=== PATIENT | female | born 1995 | race Caucasian/White ===

== ENCOUNTER 2023-09-08 06:47 | Day surgery (SDC) | payer BC, SELFPAY ==
[2023-09-08] VITALS (7 sets, daily range): BP systolic 106–114; BP diastolic 51–97; BMI 28.4
[2023-09-08] MEDS: NORMOSOL-R 1000 IV (09:40)
[2023-09-08] MEDS: VIBRAMYCIN 270 MG IV (09:40)
[2023-09-08 09:52] LABS: Hematocrit 39.2 % (37.0-47.0); Hemoglobin 13.3 g/dL (12.0-16.0)
[2023-09-08] MEDS: TYLENOL 650 MG PO (11:48)
== END 2023-09-08 12:13 | disposition home or self-care (01) ==
LOC: SDS 06:47
PROVIDERS: ATTENDING PHYSICIAN Obstetrics & Gynecology
DX: O03.4 Incomplete spontaneous abortion without complication (principal)
CPT/HCPCS: 59820; 88305; 85014; 85018; 86850; 86900; 86901; 87070

== ENCOUNTER → 2024-05-14 14:41 | Outpatient (REF) | payer BC, SELFPAY | LOC: RAD 14:41 | PROVIDERS: ATTENDING PHYSICIAN Obstetrics & Gynecology; FAMILY PHYSICIAN Nurse Practitioner | DX: Z31.41 Encounter for fertility testing (principal); N97.9 Female infertility, unspecified | CPT/HCPCS: 58340; 74740 ==

== ENCOUNTER 2025-04-29 08:29 | Emergency (ER) | payer BC, SELFPAY ==
[2025-04-29 08:31] VITALS: BP 106/77
[2025-04-29 09:20] VITALS: BP 102/59
[2025-04-29 09:22] VITALS: BP 102/59; BMI 32.1
[2025-04-29 09:40] LABS: Hematocrit 29.6 % (37.0-47.0); Hemoglobin 10.2 g/dL (12.0-16.0); Mean Corp Hgb Conc. 34.5 g/dL (33.0-37.0); Mean Corpuscular Volume 87.3 fL (81.0-99.0); Platelet Count 141 10^3/uL (130-400); Red Cell Dist. Width 13.6 % (11.5-14.5)
--- NOTE | 2025-04-29 09:45 | ED.GENMED ---
History of Present Illness
<Shon Medina MD, Resident - Last Filed: 04/29/25 12:55>
General
Chief Complaint: Breathing Problem
Source: patient and family
Time Seen by Provider: 04/29/25 08:59
History of Present Illness
History of Present Illness:
Patient is a 29-year-old female who is 29 weeks with PMH of asthma presented to the [facility] ED for shortness of breath. Patient developed backache, subjective fever, chills, and fatigue on Friday, followed by shortness of breath and
cough on Friday. Shortness of breath is intermittent and worse with exertion. Significant other at the bedside notes the patient had shaking chills in bed last night. Patient returned home on a flight from [place] yesterday. Patient receives
regular obstetric care at [facility]. is remarkable for velamentous cord insertion, which is followed with more frequent ultrasounds. Patient is also taking levothyroxine during this . Denies chest pain, headache, hemoptysis,
N/V/D. Patient was around a coworker with congestion, otherwise no sick contacts. No history of clotting or bleeding.
Past History
<Shon Medina MD, Resident - Last Filed: 04/29/25 12:55>
Past History
ED Past Medical History: Asthma and Hypothyroidism (During this )
ED Past Surgical History: Gynecological (D&C for miscarriage in early 2023)
Review of Systems
<Shon Medina MD, Resident - Last Filed: 04/29/25 12:55>
Review of Systems
Constitutional: Reports fever, fatigue, sleep disturbance and chills
EENT: Denies sore throat or runny nose
Respiratory: Reports cough and trouble breathing; Denies hemoptysis
Cardiac: Denies chest pain
ABD/GI: Denies abdominal pain, nausea, vomiting or diarrhea
Musculoskeletal: Reports back pain
Neurological: Denies headache, weakness or numbness
Phy Exam
<Shon Medina MD, Resident - Last Filed: 04/29/25 12:55>
Physical Exam
Physical Exam:
General: NAD. Conversant.
CV: RRR. S1, S2 noted. No M/R/G. No LE edema. Flexural area of L knee erythematous, without swelling or TTP. L and R legs equal in size.
Pulm: CTAB. No wheezes or crackles.
GI/: Gravid abdomen consistent with 29-week . Soft, nontender.
Neuro: A&O x 3. No focal deficits. CN II through XII grossly intact.
Course
<Shon Medina MD, Resident - Last Filed: 04/29/25 12:55>
Orders/Labs/Results
Orders:
Orders
04/29/25
Electrocardiogram (*1) Stat
Other Reason for Exam: CP
Comment: DONE
04/29/25 09:19
COVID-19 Antigen Urgent
Source: Nasal Swab
Complete Blood Count/With Diff Urgent
Comprehensive Metabolic Panel Urgent
Lipase Urgent
Comment: ADD ON
Manual Differential Urgent
Influenza A+B Rapid Molecular Urgent
GAEL Source: Nasal Swab
Specimen Description:
04/29/25 09:42
CR Chest - 2 Views Routine
Comment:
Reason For Exam: shortness of breath, cough
04/29/25 09:43
US Periph Venous LOWER Ext LT Urgent
Comment:
Reason For Exam: knee erythema in setting of sob, cough,
04/29/25 10:26
EKG [Electrocardiogram (*1)] Routine
Reason for Study: Shortness of Breath
04/29/25 10:42
Add On- LAB Urgent
Tests Added?: Lipase
04/29/25 10:59
US Abdomen Complete/Upper Urgent
Comment:
Reason For Exam: fever lft up
04/29/25 11:14
0.9% Sodium Chloride 1000 ml [Nss] 1,000 ml IV BOLUS
Acetaminophen [Tylenol] 650 mg PO NOW STA
04/29/25 11:29
Urinalysis Reflex To Culture Urgent
Date Specimen was Collected: 04/29/25
Time Specimen was Collected: 11:21
Urine Microscopic Reflex Cult Urgent
Urine Culture Urgent
GAEL Source: U
Specimen Description:
Date Specimen was Collected: 04/29/25
Time Specimen was Collected: 11:21
04/29/25 12:27
Lipase Urgent
04/29/25 12:51
Hepatitis A IgM Antibody Urgent
Hepatitis B Core Ab, IgM Urgent
Hepatitis B Surface Antibody Urgent
Hepatitis B Surface Antigen Urgent
Hepatitis C Antibody Urgent
Abnormal Lab Results
04/29/25 04/29/25
09:19 11:29
RBC 3.39 L 10^6/uL
(4.20-5.40)
Hgb 10.2 L g/dL
(12.0-16.0)
Hct 29.6 L %
(37.0-47.0)
MPV 10.8 H fL
(7.4-10.4)
Band Neutrophils 23 H %
(0-3)
Lymphocytes (Manual) 5 L %
(20-51)
Sodium 132 L mmol/L
(135-145)
Potassium 3.3 L mmol/L
(3.5-5.1)
Chloride 111 H mmol/L
(98-107)
Carbon Dioxide 19 L mmol/L
(22-30)
BUN 3 L mg/dl
(7-17)
AST 229 H U/L
(14-36)
ALT 209 H U/L
(0-35)
Alkaline Phosphatase 135 H U/L
(38-126)
Total Protein 5.8 L g/dl
(6.3-8.2)
Albumin 3.0 L g/dl
(3.5-5.0)
Urine Ketones 3+ A
(Negative)
Urine WBC (Reflex) 16-20 A /HPF
(0-5)
Urine Bacteria (Reflex) Many A
(Negative)
Urine Albumin (Reflex) 2+ A
(Neg - Trace)
04/29/25 09:19
04/29/25 09:19
Vital Signs
Initial and Last Documented VS:
Initial Vital Signs
Temp Pulse Resp BP Pulse Ox
98.7 F 106 16 106/77 94
04/29/25 08:31 04/29/25 08:31 04/29/25 08:31 04/29/25 08:31 04/29/25 08:31
Last Documented Vital Signs
Temp Pulse Resp BP Pulse Ox
98.1 F 93 14 102/59 96
04/29/25 09:22 04/29/25 09:45 04/29/25 09:45 04/29/25 09:22 04/29/25 09:46
<Carmine Barton, DO - Last Filed: 04/29/25 11:31>
Orders/Labs/Results
Orders:
Orders
04/29/25
Electrocardiogram (*1) Stat
Other Reason for Exam: CP
Comment: DONE
04/29/25 09:19
COVID-19 Antigen Urgent
Source: Nasal Swab
Complete Blood Count/With Diff Urgent
Comprehensive Metabolic Panel Urgent
Lipase Urgent
Comment: ADD ON
Manual Differential Urgent
Influenza A+B Rapid Molecular Urgent
GAEL Source: Nasal Swab
Specimen Description:
04/29/25 09:42
CR Chest - 2 Views Routine
Comment:
Reason For Exam: shortness of breath, cough
04/29/25 09:43
US Periph Venous LOWER Ext LT Urgent
Comment:
Reason For Exam: knee erythema in setting of sob, cough,
04/29/25 10:26
EKG [Electrocardiogram (*1)] Routine
Reason for Study: Shortness of Breath
04/29/25 10:42
Add On- LAB Urgent
Tests Added?: Lipase
04/29/25 10:59
US Abdomen Complete/Upper Urgent
Comment:
Reason For Exam: fever lft up
04/29/25 11:14
0.9% Sodium Chloride 1000 ml [Nss] 1,000 ml IV BOLUS
Acetaminophen [Tylenol] 650 mg PO NOW STA
04/29/25 11:29
Urinalysis Reflex To Culture Urgent
Date Specimen was Collected: 04/29/25
Time Specimen was Collected: 11:21
Urine Microscopic Reflex Cult Urgent
Urine Culture Urgent
GAEL Source: U
Specimen Description:
Date Specimen was Collected: 04/29/25
Time Specimen was Collected: 11:21
04/29/25 12:27
Lipase Urgent
04/29/25 12:51
Hepatitis A IgM Antibody Urgent
Hepatitis B Core Ab, IgM Urgent
Hepatitis B Surface Antibody Urgent
Hepatitis B Surface Antigen Urgent
Hepatitis C Antibody Urgent
Abnormal Lab Results
04/29/25 04/29/25
09:19 11:29
RBC 3.39 L 10^6/uL
(4.20-5.40)
Hgb 10.2 L g/dL
(12.0-16.0)
Hct 29.6 L %
(37.0-47.0)
MPV 10.8 H fL
(7.4-10.4)
Band Neutrophils 23 H %
(0-3)
Lymphocytes (Manual) 5 L %
(20-51)
Sodium 132 L mmol/L
(135-145)
Potassium 3.3 L mmol/L
(3.5-5.1)
Chloride 111 H mmol/L
(98-107)
Carbon Dioxide 19 L mmol/L
(22-30)
BUN 3 L mg/dl
(7-17)
AST 229 H U/L
(14-36)
ALT 209 H U/L
(0-35)
Alkaline Phosphatase 135 H U/L
(38-126)
Total Protein 5.8 L g/dl
(6.3-8.2)
Albumin 3.0 L g/dl
(3.5-5.0)
Urine Ketones 3+ A
(Negative)
Urine WBC (Reflex) 16-20 A /HPF
(0-5)
Urine Bacteria (Reflex) Many A
(Negative)
Urine Albumin (Reflex) 2+ A
(Neg - Trace)
04/29/25 09:19
04/29/25 09:19
Vital Signs
Initial and Last Documented VS:
Initial Vital Signs
Temp Pulse Resp BP Pulse Ox
98.7 F 106 16 106/77 94
04/29/25 08:31 04/29/25 08:31 04/29/25 08:31 04/29/25 08:31 04/29/25 08:31
Last Documented Vital Signs
Temp Pulse Resp BP Pulse Ox
98.1 F 93 14 102/59 96
04/29/25 09:22 04/29/25 09:45 04/29/25 09:45 04/29/25 09:22 04/29/25 09:46
<Shon Medina MD, Resident - Last Filed: 04/29/25 12:55>
MDM/Problems Addressed
Differential Diagnosis Includes:
Pulmonary embolism
Pneumonia
Pneumothorax
Bronchitis
Asthma exacerbation
Heart failure
Physiologic dyspnea
MDM/Problems Addressed:
Assessment: Patient is a 29-year-old female 29 weeks with PMH of asthma who presented to the [facility] ED with subjective fever, fatigue, back pain, and chills for 3 days and shortness of breath (worse with exertion) and cough for 2 days.
Patient also noticed erythema at the flexural area of her L knee this morning, without pain or swelling. On presentation, patient was mildly tachycardic (106) with mild hypoxia (94%), otherwise normal vital signs. Initial assessment with CXR and
LLE U/S unremarkable. LFTs elevated and upper abdominal ultrasound, prompting evaluation of hepatocellular causes of liver injury. UA suggestive of UTI, culture pending.
Plan:
#Shortness of breath
#Transaminitis
Imaging: CXR, LLE u/s, upper abdominal u/s
Labs: CBC, CMP, flu, COVID, lipase, viral hepatitis panel, UA
<Shon Medina MD, Resident - Last Filed: 04/29/25 12:55>
*Pulse Oximetry
SaO2: 96
Oxygen Mode of Delivery: Room air
Patient hypoxic: yes
*Critical Care Note
Total Time (30-74mins, 75-104mins- exclusive of procedures): Not Applicable
ED Attending Note
<Shon Medina MD, Resident - Last Filed: 04/29/25 12:55>
-
Portions of this chart may have been created with voice recognition software.� Occasional wrong word or��sound alike� substitutions may have occurred due to the inherent limitations of voice recognition software.
<Carmine Barton, DO - Last Filed: 04/29/25 11:31>
ED Attending Note
Patient seen and examined by attending physician: Yes
I performed a history and physical exam of patient and discussed management with resident, I reviewed resident's note and agree with documented findings and plan of care.: Yes
ED Attending Note:
seen with resident, agree with a/p
2nd trimester, cough sob fever and shaking chills
Nontoxic, minimal redness in her left posterior knee,
Chest x-ray noted reviewed with radiology no obvious pneumonia, labs are noted normal white count with a shift LFTs are up, lipase is pending denies any abdominal pain does not lost her appetite
Clinical suspicion is an infectious process as opposed to thromboembolic disease
? Viral,
Discharge Plan
Departure
Prescriptions:
No Action
1 mg Tablet
1 tab PO DAILY
albuterol sulfate [ProAir HFA] 90 mcg/actuation Hfa Aerosol Inhaler
2 puff INHALATION 6XD PRN (Reason: ASTHMA)
Patient Comments:
pt states it has been more than a year since last dose.
Referrals:
Angy Mixon CRNP [Family Provider, Family Practice]
Interventions
Interventions:
*Risk Screen - Suicide Last Done: 04/29/25 08:31
*General Assessment Last Done: 04/29/25 09:22
*Neglect/Abuse Screening Last Done: 04/29/25 08:31
*ED- Fall Risk Assessment Last Done: 04/29/25 09:22
*ED COVID-19 Vaccine History Last Done: 04/29/25 09:22
*ED Influenza Vaccine History Last Done: 04/29/25 09:22
ED- Cardiac Assessment Last Done: 04/29/25 09:22
ED- Pulmonary Assessment Last Done: 04/29/25 09:22
Discharge Date and Time
Print Language: FILIPINO
[2025-04-29 09:51] LABS: ALT (SGPT) 209 U/L (0-35); AST (SGOT) 229 U/L (14-36); Albumin 3.0 g/dl (3.5-5.0); Alkaline Phosphatase 135 U/L (38-126); Blood Urea Nitrogen 3 mg/dl (7-17); Calcium 8.5 mg/dl (8.4-10.2); Carbon Dioxide 19 mmol/L (22-30); Chloride 111 mmol/L (98-107); Estimated Creatinine Clearance > 125 ml/min; Glucose 81 mg/dl (70-99); Potassium 3.3 mmol/L (3.5-5.1); Sodium 132 mmol/L (135-145); Total Protein 5.8 g/dl (6.3-8.2); eGFR > 60.00
[2025-04-29 10:03] LABS: COVID-19 Antigen Negative (Negative)
[2025-04-29 10:33] LABS: Absolute Neutrophils -Man Diff 4.6 10^3/uL (1.4-6.5)
[2025-04-29 10:35] LABS: Normal RBC Morphology Yes; Platelets Checked Yes; Total Cells Counted 100
[2025-04-29] MEDS: TYLENOL 650 MG PO (11:25)
[2025-04-29] MEDS: NSS 1000 IV (11:26)
[2025-04-29 11:32] LABS: Lipase 82 U/L (23-300)
[2025-04-29 11:52] LABS: Urine Character Slightly Cloudy (Clear)
[2025-04-29 12:31] LABS: Urine Squamous Cell >30 /LPF (Few); Urine Urothelial Cell 0-2 /LPF (FEW)
[2025-04-29 12:32] LABS: Urine Red Blood Cell 0-2 /HPF (0-2); Urine White Cell 16-20 /HPF (0-5)
[2025-04-29 13:05] LABS: Lipase 83 U/L (23-300)
[2025-04-29] MEDS: ROCEPHIN 1000 MG IV (13:08)
[2025-04-29 14:07] LABS: Hepatitis B Surface Antigen Negative (Negative)
[2025-04-29 14:24] LABS: Hepatitis C Antibody Negative (Negative)
== END 2025-04-29 13:17 | disposition home or self-care (01) ==
LOC: EMR 08:29
PROVIDERS: EMERGENCY PHYSICIAN Emergency Medicine; FAMILY PHYSICIAN Nurse Practitioner
DX: O99.891 Other specified diseases and conditions complicating pregnancy (principal); J40 Bronchitis, not specified as acute or chronic; O12.03 Gestational edema, third trimester; O43.123 Velamentous insertion of umbilical cord, third trimester; O98.413 Viral hepatitis complicating pregnancy, third trimester; O99.283 Endocrine, nutritional and metabolic diseases complicating pregnancy, third trimester; O99.513 Diseases of the respiratory system complicating pregnancy, third trimester; Z3A.29 29 weeks gestation of pregnancy; E03.9 Hypothyroidism, unspecified
CPT/HCPCS: 99284; 71046; 76700; 80053; 81003; 81015; 83690; 85025; 86705; 86706; 86709; 86803; 87086; 87340; 87502; 87811; 93005; 93971

== ENCOUNTER 2025-05-02 16:43 | Emergency (ER) | payer BC, SELFPAY ==
[2025-05-02 16:56] VITALS: BP 113/69
--- NOTE | 2025-05-02 18:40 | ED.GENMED ---
History of Present Illness
General
Chief Complaint: Breathing Problem
Time Seen by Provider: 05/02/25 18:31
History of Present Illness
History of Present Illness:
29-year-old female G4, P0 presenting to the emergency department for shortness of breath. She is currently 29 weeks . Per chart review she was seen here 3 days ago diagnosed with a viral infection and started on antibiotics and discharged.
Patient presenting back that she is having ongoing shortness of breath. She does state that her fevers chills cough is better initially they did talk about CT PE study during her last ER visit but she declined. Given that the symptoms have been
ongoing after discussion with her OB team they told her to come to the emergency department. Per chart review it also appears that patient had transaminitis. She did have a workup completed with no obvious cause.
Past History
Past History
ED Past Medical History: Asthma and Hypothyroidism (During this )
ED Past Surgical History: Gynecological (D&C for miscarriage in early 2023)
Phy Exam
Physical Exam
Physical Exam:
GENERAL: in no acute distress
HEENT: normocephalic, extraocular movements intact, moist oral mucosa
NECK: normal inspection
RESPIRATORY: no respiratory distress, clear to auscultation bilaterally
CARDIOVASCULAR: regular rate and rhythm
ABDOMEN/: soft, non-distended, non-tender to palpation, no rebound or guarding
EXTREMITIES: non-tender, no edema/swelling
NEUROLOGIC: awake and alert, moves all extremities
SKIN: warm
Course
Orders/Labs/Results
Orders:
Orders
05/02/25 17:10
EKG [Electrocardiogram (*1)] Urgent
Reason for Study: Shortness of Breath
05/02/25 17:11
EKG- Treatment ONCE
05/02/25 18:39
Electrocardiogram (*1) Urgent
Reason for Study: Chest Pain
CT Chest PE Study Urgent
Comment:
Reason For Exam: sob
EKG- Treatment ONCE
05/02/25 19:04
Complete Blood Count/With Diff Urgent
Comprehensive Metabolic Panel Urgent
Lyme Progressive Urgent
Monotest Urgent
05/02/25 19:22
Urinalysis Reflex To Culture Urgent
Date Specimen was Collected: 05/02/25
Time Specimen was Collected: 19:14
Urine Creatinine Urgent
Date Specimen was Collected: 05/02/25
Time Specimen was Collected: 19:14
Comment: ADD ON
Urine Microscopic Reflex Cult Urgent
Urine Protein Urgent
Date Specimen was Collected: 05/02/25
Time Specimen was Collected: 19:14
Comment: ADD ON
05/02/25 20:09
Add On- LAB Urgent
Tests Added?: urine protein to creatinine ratio
Abnormal Lab Results
05/02/25 05/02/25
19:04 19:22
RBC 3.66 L 10^6/uL
(4.20-5.40)
Hgb 10.6 L g/dL
(12.0-16.0)
Hct 31.5 L %
(37.0-47.0)
Immature Gran % 0.7 H %
(0-0.5)
Sodium 134 L mmol/L
(135-145)
Carbon Dioxide 19 L mmol/L
(22-30)
BUN 5 L mg/dl
(7-17)
Glucose 68 L mg/dl
(70-99)
Calcium 8.3 L mg/dl
(8.4-10.2)
AST 206 H U/L
(14-36)
ALT 356 H U/L
(0-35)
Alkaline Phosphatase 250 H U/L
(38-126)
Total Protein 6.0 L g/dl
(6.3-8.2)
Albumin 3.2 L g/dl
(3.5-5.0)
Urine Ketones 3+ A
(Negative)
Urine Bacteria (Reflex) Few A
(Negative)
Urine Total Protein 16 H mg/dl
(0-12)
Urine Albumin (Reflex) 1+ A
(Neg - Trace)
05/02/25 19:04
05/02/25 19:04
Vital Signs
Initial and Last Documented VS:
Initial Vital Signs
Temp Pulse Resp BP Pulse Ox
97.8 F 76 16 113/69 98
05/02/25 16:56 05/02/25 16:56 05/02/25 16:56 05/02/25 16:56 05/02/25 16:56
Last Documented Vital Signs
Temp Pulse Resp BP Pulse Ox
97.8 F 84 18 110/69 98
05/02/25 16:56 05/02/25 21:00 05/02/25 21:00 05/02/25 21:00 05/02/25 21:00
MDM/Problems Addressed
Differential Diagnosis Includes:
Patient is a 29-year-old female who is 29 weeks presenting to the emergency department with ongoing shortness of breath and improvement in her cold-like symptoms. On arrival vitals unremarkable and exam is reassuring. Concern for PE
versus pneumonia versus mono. History and exam not consistent with cardiac etiology. Will check blood work as well as repeat LFTs. Will obtain CT PE study. Will repeat urinalysis to treat asymptomatic bacteriuria given that she is .
Patient is requesting Lyme testing as she has a small patch of redness behind her knee. Ultrasound DVT study was completed last time which was negative.
Chronic conditions affecting care: HTN
*Pulse Oximetry
SaO2: 98
Oxygen Mode of Delivery: Room air
Patient hypoxic: no
*Critical Care Note
Total Time (30-74mins, 75-104mins- exclusive of procedures): Not Applicable
Update Note
Update Note:
CBC unremarkable. Her LFTs are increased again. She is on Tylenol as well as amoxicillin. Patient will stop the Tylenol. She does have a few days left of the amoxicillin. Platelets have improved. I did discuss with OB who recommended adding
urine protein and creatinine.
Urine protein to creatinine ratio discussed with OB. They recommended discharge and outpatient follow-up for transaminitis as well as following up with GI. Message placed for GI front end architect.
CT PE negative for proximal blood clot. I did discuss with patient the limitations of the CAT scan and what was unable to be visualized. Given that patient is not hypoxic tachycardic or hypotensive and symptoms have been improving she does prefer
to be discharged. My suspicion for a clinically significant PE is low so I do feel confident in this decision. Strict return precautions given. Will discharge at this time
ED Attending Note
-
Portions of this chart may have been created with voice recognition software.� Occasional wrong word or��sound alike� substitutions may have occurred due to the inherent limitations of voice recognition software.
Discharge Plan
Departure
Patient Disposition: Home (Routine Discharge)
Date of Disposition: 05/02/25
Time of Disposition: 21:37
Patient with high blood pressure during this ER visit?: No
Discharge Problem:
Transaminitis, Shortness of breath
Instructions: Shortness of Breath (Dyspnea) (DC)
Prescriptions:
No Action
1 mg Tablet
1 tab PO DAILY
albuterol sulfate [ProAir HFA] 90 mcg/actuation Hfa Aerosol Inhaler
2 puff INHALATION 6XD PRN (Reason: ASTHMA)
Patient Comments:
pt states it has been more than a year since last dose.
amoxicillin 500 mg tablet
500 mg PO Q8H Qty: 30 0RF
Referrals:
Angy Mixon CRNP [Family Provider, Family Practice]
Activity Restrictions/Additional Instructions:
You were seen in the Emergency Department today for shortness of breath. While you were here we performed blood work, which did show elevated liver function tests. The GI office will call you to schedule an appointment. Please make sure you
follow-up with your OB team as well about this.
We would like for you to follow up with your primary care physician for further evaluation. If you experience fever, worsening of your symptoms, or develop any other new or concerning symptoms, please return to the Emergency Department immediately.
Please see the attached sheet for additional information.
Interventions
Interventions:
*Risk Screen - Suicide Last Done: 05/02/25 16:56
*General Assessment Last Done: 05/02/25 16:56
*ED- Fall Risk Assessment Last Done: 05/02/25 21:00
*ED COVID-19 Vaccine History Last Done: 05/02/25 16:56
*ED Influenza Vaccine History Last Done: 05/02/25 16:56
*Nursing Disposition Last Done: 05/02/25 21:42
ED- Cardiac Assessment Last Done: 05/02/25 20:00
ED- Pulmonary Assessment Last Done: 05/02/25 20:00
Discharge Date and Time
Print Language: GERMAN
[2025-05-02 19:18] LABS: Hematocrit 31.5 % (37.0-47.0); Hemoglobin 10.6 g/dL (12.0-16.0); Mean Corp Hgb Conc. 33.7 g/dL (33.0-37.0); Mean Corpuscular Volume 86.1 fL (81.0-99.0); Nucleated Red Blood Cells % 0 %; Platelet Count 217 10^3/uL (130-400); Red Cell Dist. Width 13.5 % (11.5-14.5)
[2025-05-02 19:33] LABS: Urine Character Slightly Cloudy (Clear)
[2025-05-02 19:33] LABS: ALT (SGPT) 356 U/L (0-35); AST (SGOT) 206 U/L (14-36); Albumin 3.2 g/dl (3.5-5.0); Alkaline Phosphatase 250 U/L (38-126); Blood Urea Nitrogen 5 mg/dl (7-17); Calcium 8.3 mg/dl (8.4-10.2); Carbon Dioxide 19 mmol/L (22-30); Chloride 107 mmol/L (98-107); Glucose 68 mg/dl (70-99); Potassium 3.8 mmol/L (3.5-5.1); Sodium 134 mmol/L (135-145); Total Protein 6.0 g/dl (6.3-8.2); eGFR > 60.00
[2025-05-02 19:44] LABS: Urine Red Blood Cell 0-2 /HPF (0-2); Urine Squamous Cell 21-25 /LPF (Few); Urine Urothelial Cell 0-2 /LPF (FEW); Urine White Cell 0-2 /HPF (0-5)
[2025-05-02 21:00] VITALS: BP 110/69
== END 2025-05-02 21:42 | disposition home or self-care (01) ==
LOC: EMR 16:43
PROVIDERS: EMERGENCY PHYSICIAN Student in an Organized Health Care Education/Training Program; FAMILY PHYSICIAN Nurse Practitioner
DX: O99.891 Other specified diseases and conditions complicating pregnancy (principal); R74.01 Elevation of levels of liver transaminase levels; R06.02 Shortness of breath; O99.513 Diseases of the respiratory system complicating pregnancy, third trimester; J45.909 Unspecified asthma, uncomplicated; O99.283 Endocrine, nutritional and metabolic diseases complicating pregnancy, third trimester; E03.9 Hypothyroidism, unspecified; Z3A.29 29 weeks gestation of pregnancy
CPT/HCPCS: 99284; 71275; 80053; 81003; 81015; 82570; 84156; 85025; 86308; 86618; 93005; Q9967

== ENCOUNTER → 2025-05-25 08:08 | Outpatient (REF) | payer BC, SELFPAY | LOC: PNTC 08:08 | PROVIDERS: ATTENDING PHYSICIAN Obstetrics & Gynecology | DX: O43.123 Velamentous insertion of umbilical cord, third trimester (principal) | CPT/HCPCS: 59025; 76815 ==

== ENCOUNTER → 2025-05-31 11:17 | Outpatient (REF) | payer BC, SELFPAY | LOC: PNTC 11:17 | PROVIDERS: ATTENDING PHYSICIAN Obstetrics & Gynecology | DX: O43.123 Velamentous insertion of umbilical cord, third trimester (principal); O99.283 Endocrine, nutritional and metabolic diseases complicating pregnancy, third trimester | CPT/HCPCS: 59025; 76815 ==

== ENCOUNTER → 2025-06-08 08:32 | Outpatient (REF) | payer BC, SELFPAY | LOC: PNTC 08:32 | PROVIDERS: ATTENDING PHYSICIAN Obstetrics & Gynecology | DX: O43.123 Velamentous insertion of umbilical cord, third trimester (principal); O99.283 Endocrine, nutritional and metabolic diseases complicating pregnancy, third trimester | CPT/HCPCS: 59025; 76815 ==

== ENCOUNTER → 2025-06-15 08:30 | Outpatient (REF) | payer BC, SELFPAY | LOC: PNTC 08:30 | PROVIDERS: ATTENDING PHYSICIAN Obstetrics & Gynecology | DX: O43.123 Velamentous insertion of umbilical cord, third trimester (principal); O99.283 Endocrine, nutritional and metabolic diseases complicating pregnancy, third trimester | CPT/HCPCS: 59025; 76815 ==

== ENCOUNTER → 2025-06-22 08:31 | Outpatient (REF) | payer BC, SELFPAY | LOC: PNTC 08:31 | PROVIDERS: ATTENDING PHYSICIAN Obstetrics & Gynecology | DX: O43.123 Velamentous insertion of umbilical cord, third trimester (principal); O99.283 Endocrine, nutritional and metabolic diseases complicating pregnancy, third trimester | CPT/HCPCS: 59025; 76816 ==

== ENCOUNTER → 2025-06-29 08:27 | Outpatient (REF) | payer BC, SELFPAY | LOC: PNTC 08:27 | PROVIDERS: ATTENDING PHYSICIAN Obstetrics & Gynecology | DX: O43.123 Velamentous insertion of umbilical cord, third trimester (principal) | CPT/HCPCS: 59025; 76815 ==

== ENCOUNTER → 2025-07-06 08:28 | Outpatient (REF) | payer BC, SELFPAY | LOC: PNTC 08:28 | PROVIDERS: ATTENDING PHYSICIAN Obstetrics & Gynecology | DX: O43.123 Velamentous insertion of umbilical cord, third trimester (principal) | CPT/HCPCS: 59025; 76815 ==